=== PATIENT | male | born 1935 | race Two or more races ===

== ENCOUNTER 2017-02-24 14:57 | Inpatient (IN) | payer MEDICARE, OTHER ==
[~2017-02-24] VITALS: Ht 152.4 cm; Wt 97.5 kg
[2017-02-24] VITALS (21 sets, daily range): BP systolic 110–179; BP diastolic 41–102
[~2017-02-24 14:57] MED LIST: CALCIUM CHLOR(10%) 100MG/ML 10ML SYRINGE IV ONE; EPINEPHrine HCL 1 MG/10 ML SYRG IV ONE; SODIUM BICARBONATE 8.4% INJ 50ML SYRINGE IV ONE
[2017-02-24] MEDS ORDERED: SODIUM BICARBONATE 8.4% INJ 50ML SYRINGE ONE (14:58)
[2017-02-24] MEDS ORDERED: MIDAZOLAM DRIP 100 mg/100mL NS 100 ML IV SCH (15:11)
[2017-02-24] MEDS ORDERED: PIPERACILLIN-TAZOB 3.375GM 100 ML IV ONE (15:30)
[2017-02-24] MEDS ORDERED: SODIUM CHLORIDE 0.9% 1,000 ML IV ONE (15:30)
[2017-02-24] MEDS ORDERED: CLINDAMYCIN 900MG IV 50 ML IV ONE (15:30)
[2017-02-24 15:33] LABS: Basophils # (auto) 0.1 uL; Basophils % (auto) 0.4 % (0.0-2.0); Eosinophils # (auto) 0.2 uL; Hematocrit 40.4 % (41.0-53.0); Hemoglobin 12.8 g/dL (13.5-17.5); Lymphocytes # (auto) 3.4 uL; Lymphocytes % (auto) 18.8 % (10.0-50.0); Mean Corpuscular Hgb Conc. 31.7 g/dL (32.0-36.0); Mean Corpuscular Volume 97.8 fL (80.0-100.0); Mean Platelet Volume 9.7 fL (7.4-10.4); Monocytes % (auto) 5.4 % (0.0-12.0); Neutrophils # (auto) 13.3 uL; Neutrophils % (auto) 74.4 % (37.0-80.0); Platelet Count (auto) 177 10^3/uL (140-450); Red Cell Distribution Width 17.4 % (11.6-16.0); White Blood Cell 17.9 10^3/uL (4.4-10.8)
[2017-02-24 15:49] LABS: Albumin 2.7 g/dL (3.4-5.0); BUN/Creatinine Ratio 16.7; Bilirubin, Total 0.4 mg/dL (0.2-1.0); Calcium 7.7 mg/dL (8.5-10.1); Potassium 5.5 mmol/L (3.5-5.1); Total Protein 6.9 g/dL (6.4-8.2)
[2017-02-24 15:51] LABS: Allen Test Modified; Base Excess -8.3 mmol/L (-2.0-2.0); Blood 02Sat 97.2 % (96-100); Blood COHb 0.3 % (0.5-1.5); Blood MetHb 0.2 % (0.0-1.5); HCO3 18.7 mmol/L (22-26.0); HHb 2.8 % (0.0-5.0); MODE VENT - A/C; O2Hb 96.7 % (94.0-97.0); PO2 132.7 mmHg (80.0-100.0); PO2(T) 135.8 mmHg (80.0-100.0); Sample Type Arterial; pH 7.246 (7.350-7.450)
[2017-02-24 15:53] LABS: Urine Bilirubin Negative (Negative); Urine Blood TRACE /uL (Negative); Urine Color Yellow (Yellow); Urine Ketone Negative (Negative); Urine Nitrite Negative (Negative); Urine RBC 11 /hpf (0 - 3); Urine Urobilinogen Normal (Negative); Urine pH 5.5 (5.0-8.0)
[2017-02-24] MEDS: MIDAZOLAM DRIP 100 mg/100mL NS 100 ML IV SCH ×2 (16:00→22:35)
[2017-02-24 16:02] LABS: B-Type Natriuretic Peptide 1327.58 pg/mL (0-100); Lactic Acid w/Reflex 11.3 mmol/L (0.4-2.0)
[2017-02-24 16:03] LABS: Urine Glucose 2+ mg/dL (Normal)
[2017-02-24 16:06] LABS: Temperature: 23.1 C (20.0-25.0)
[2017-02-24] MEDS ORDERED: NITROGLYCERIN 0.4 MG SL TAB SL PRN (16:15)
[2017-02-24] MEDS ORDERED: MORPHINE SULF INJ 2 MG/ML SYRINGE 1ML IV PRN (16:15)
[2017-02-24] MEDS ORDERED: DEXTROSE (50%) 50ML SYRG IV PRN (16:15)
[2017-02-24 16:22] LABS: REFLEX LACTIC ACID YES OR NO YES
[2017-02-24] MEDS: PANTOPRAZOLE SODIUM 40 MG/10 ML VIAL IV SCH (16:30)
[2017-02-24] MEDS: ENOXAPARIN SOD 30 MG/0.3 ML SYRINGE SC SCH (16:30)
[2017-02-24] MEDS ORDERED: ASPirin 81 mg TAB PO ONE (16:30)
[2017-02-24] MEDS ORDERED: FUROSEMIDE 20 MG/2 ML VIAL IV ONE (16:30)
[2017-02-24] MEDS: cefTRIAXone 1GM/50ML D5W 50 ML IV SCH (17:41)
[2017-02-24] MEDS: ACCU-CHEK COMFORT CURVE STRIP VI SCH ×2 (18:00→23:58)
[2017-02-24] MEDS: InsuLIN REG 1unit/0.01ml Soln (100units/ml) SC SCH ×2 (18:00→23:58)
[2017-02-24] MEDS ORDERED: VANCOMYCIN 1GM/250ML D5W 250 ML IV ONE (18:15)
[2017-02-24] MEDS: PROPOFOL 100 ML IV SCH (19:40)
[2017-02-24] MEDS: CLINDAMYCIN 600MG IV 50 ML IV SCH (22:29)
[2017-02-24] MEDS: ALBUMIN 25% 100 ML IV SCH (22:29)
[2017-02-24] MEDS: ATORVASTATIN 20 MG TAB PO SCH (22:30)
[2017-02-24] MEDS: BUMETANIDE (0.25 MG/ML) INJ 10ML IV SCH (23:25)
[2017-02-25] VITALS (102 sets, daily range): BP systolic 92–177; BP diastolic 34–86
[2017-02-25 04:19] LABS: Basophils # (auto) 0 uL; Eosinophils # (auto) 0 uL; Hematocrit 29.7 % (41.0-53.0); Hemoglobin 9.7 g/dL (13.5-17.5); Lymphocytes # (auto) 0.7 uL; Lymphocytes % (auto) 4.4 % (10.0-50.0); Mean Corpuscular Hemoglobin 30.4 pg (28.0-32.0); Mean Corpuscular Hgb Conc. 32.5 g/dL (32.0-36.0); Mean Corpuscular Volume 93.5 fL (80.0-100.0); Mean Platelet Volume 9.2 fL (7.4-10.4); Monocytes # (auto) 1.1 uL; Monocytes % (auto) 6.9 % (0.0-12.0); Neutrophils # (auto) 14.2 uL; Neutrophils % (auto) 88.7 % (37.0-80.0); Platelet Count (auto) 152 10^3/uL (140-450); Red Cell Distribution Width 16.1 % (11.6-16.0)
[2017-02-25 04:43] LABS: Potassium 4.3 mmol/L (3.5-5.1)
[2017-02-25 04:47] LABS: Albumin 2.7 g/dL (3.4-5.0); Calcium 8.3 mg/dL (8.5-10.1)
[2017-02-25 05:06] LABS: Bilirubin, Total 0.5 mg/dL (0.2-1.0); Total Protein 5.9 g/dL (6.4-8.2)
[2017-02-25] MEDS: ALBUMIN 25% 100 ML IV SCH ×4 (05:33→23:51)
[2017-02-25] MEDS: InsuLIN REG 1unit/0.01ml Soln (100units/ml) SC SCH ×4 (06:00→23:48)
[2017-02-25] MEDS: ACCU-CHEK COMFORT CURVE STRIP VI SCH ×4 (06:20→23:48)
[2017-02-25] MEDS: CLINDAMYCIN 600MG IV 50 ML IV SCH ×3 (06:20→22:12)
[2017-02-25] MEDS: BUMETANIDE (0.25 MG/ML) INJ 10ML IV SCH ×3 (06:54→17:33)
[2017-02-25] MEDS ORDERED: REPA2TAB8 PO (09:26)
[2017-02-25] MEDS ORDERED: FERR-7 PO (09:26)
[2017-02-25] MEDS ORDERED: ASPI81CH43 PO (09:26)
[2017-02-25] MEDS ORDERED: CITA-77 PO (09:26)
[2017-02-25] MEDS ORDERED: FURO40TA4 PO (09:26)
[2017-02-25] MEDS ORDERED: B-CO-5 PO (09:26)
[2017-02-25] MEDS ORDERED: LOSA100T27 PO (09:26)
[2017-02-25] MEDS ORDERED: SIMV-8 PO (09:26)
[2017-02-25] MEDS: ASPirin 81 mg TAB PO SCH (09:36)
[2017-02-25] MEDS: ENOXAPARIN SOD 30 MG/0.3 ML SYRINGE SC SCH (09:36)
[2017-02-25] MEDS: cefTRIAXone 1GM/50ML D5W 50 ML IV SCH (09:36)
[2017-02-25] MEDS: PANTOPRAZOLE SODIUM 40 MG/10 ML VIAL IV SCH (09:36)
[2017-02-25 10:26] LABS: Allen Test Yes; Blood 02Sat 95.7 % (96-100); Blood COHb 0.3 % (0.5-1.5); Blood MetHb 0.3 % (0.0-1.5); HCO3 25.1 mmol/L (22-26.0); HHb 4.3 % (0.0-5.0); MODE VENT - A/C; O2Hb 95.1 % (94.0-97.0); PCO2 33.4 mmHg (35.0-45.0); PCO2(T) 33.4 mmHg (35.0-45.0); PO2 85.9 mmHg (80.0-100.0); PO2(T) 85.9 mmHg (80.0-100.0); Sample Type Arterial; pH 7.494 (7.350-7.450)
[2017-02-25] MEDS: MIDAZOLAM DRIP 100 mg/100mL NS 100 ML IV SCH (12:14)
[2017-02-25] MEDS ORDERED: BACLOFEN 10 MG TAB PO ONE (15:00)
[2017-02-25] MEDS ORDERED: Diabetisource AC 1 Liter GT SCH (15:00)
[2017-02-25] MEDS: PROPOFOL 100 ML IV SCH (15:12)
[2017-02-25] MEDS: FREE WATER GT SCH ×2 (17:34→23:51)
[2017-02-25] MEDS ORDERED: FREE WATER GT SCH (18:00)
[2017-02-25] MEDS: ATORVASTATIN 20 MG TAB PO SCH (22:12)
[2017-02-26] VITALS (97 sets, daily range): BP systolic 86–146; BP diastolic 34–67
[2017-02-26] MEDS: BUMETANIDE (0.25 MG/ML) INJ 10ML IV SCH ×4 (01:20→18:00)
[2017-02-26 04:08] LABS: Basophils # (auto) 0 uL; Basophils % (auto) 0.2 % (0.0-2.0); CONDITION Y; Eosinophils # (auto) 0 uL; Eosinophils % (auto) 0.1 % (0.0-7.0); Hematocrit 28.1 % (41.0-53.0); Hemoglobin 9.4 g/dL (13.5-17.5); Lymphocytes # (auto) 0.6 uL; Lymphocytes % (auto) 3.7 % (10.0-50.0); Mean Corpuscular Hemoglobin 31.1 pg (28.0-32.0); Mean Corpuscular Hgb Conc. 33.5 g/dL (32.0-36.0); Mean Platelet Volume 9.4 fL (7.4-10.4); Monocytes # (auto) 1.3 uL; Monocytes % (auto) 8.2 % (0.0-12.0); Neutrophils # (auto) 13.7 uL; Neutrophils % (auto) 87.8 % (37.0-80.0); Platelet Count (auto) 120 10^3/uL (140-450); White Blood Cell 15.6 10^3/uL (4.4-10.8)
[2017-02-26 04:31] LABS: BUN/Creatinine Ratio 15.8; Calcium 8.4 mg/dL (8.5-10.1); Potassium 3.6 mmol/L (3.5-5.1)
[2017-02-26] MEDS: CLINDAMYCIN 600MG IV 50 ML IV SCH ×3 (05:40→22:08)
[2017-02-26] MEDS: InsuLIN REG 1unit/0.01ml Soln (100units/ml) SC SCH ×3 (05:40→18:00)
[2017-02-26] MEDS: FREE WATER GT SCH ×3 (05:40→18:00)
[2017-02-26] MEDS: ALBUMIN 25% 100 ML IV SCH ×3 (05:40→18:00)
[2017-02-26] MEDS: ACCU-CHEK COMFORT CURVE STRIP VI SCH ×3 (05:40→18:00)
[2017-02-26 07:52] LABS: Allen Test No; Base Excess 1.4 mmol/L (-2.0-2.0); Blood 02Sat 92.3 % (96-100); Blood COHb 1.3 % (0.5-1.5); Blood MetHb 0.3 % (0.0-1.5); HCO3 23.7 mmol/L (22-26.0); HHb 7.6 % (0.0-5.0); MODE VENT - A/C; O2Hb 90.8 % (94.0-97.0); PCO2 31.4 mmHg (35.0-45.0); PCO2(T) 35.2 mmHg (35.0-45.0); PIP 23; PO2 65.6 mmHg (80.0-100.0); PO2(T) 78.4 mmHg (80.0-100.0); Sample Type Arterial; pH 7.495 (7.350-7.450)
[2017-02-26] MEDS: ACETAMINOPHEN 325 MG TAB PO PRN (08:34)
[2017-02-26] MEDS: PANTOPRAZOLE SODIUM 40 MG/10 ML VIAL IV SCH (09:27)
[2017-02-26] MEDS: cefTRIAXone 1GM/50ML D5W 50 ML IV SCH (09:27)
[2017-02-26] MEDS ORDERED: DOBUTamine 1000MCG/ML 250 ML IV SCH (09:30)
[2017-02-26] MEDS: ALBUTEROL SULF 2.5 MG/0.5ML(0.5%) NEB SOLN NEB PRN ×2 (12:16→22:19)
[2017-02-26] MEDS: ACETYLCYSTEINE 10 %(100MG/ML) SOL 4ML NEB SCH ×2 (12:17→22:19)
[2017-02-26] MEDS: ENOXAPARIN SOD 30 MG/0.3 ML SYRINGE SC SCH (12:25)
[2017-02-26] MEDS: ASPirin 81 mg TAB PO SCH (12:25)
[2017-02-26 15:54] LABS: Cholesterol 51 mg/dL (< 200); HDL Cholesterol 30 mg/dL (40-59); LDL Cholesterol 22 mg/dL (< 100); Triglycerides 78 mg/dL (< 150)
[2017-02-26] MEDS: MIDAZOLAM DRIP 100 mg/100mL NS 100 ML IV SCH (16:19)
[2017-02-26] MEDS: PROPOFOL 100 ML IV SCH (16:19)
[2017-02-26] MEDS: NOREPINEPHRINE BITARTRATE 250 ML IV SCH (16:55)
[2017-02-26] MEDS ORDERED: NOREPINEPHRINE BITARTRATE 250 ML IV ONE (16:55)
[2017-02-26] MEDS: fentaNYL Drip 2500mCg/250mlNS 250 ML IV SCH (18:50)
[2017-02-26] MEDS: ATORVASTATIN 20 MG TAB PO SCH (22:09)
[2017-02-26] MEDS: PIPERACILLIN-TAZOB 2.25GM 50 ML IV SCH (22:09)
[2017-02-27] VITALS (102 sets, daily range): BP systolic 85–133; BP diastolic 39–64
[2017-02-27] MEDS: FREE WATER GT SCH ×4 (00:10→18:15)
[2017-02-27] MEDS: InsuLIN REG 1unit/0.01ml Soln (100units/ml) SC SCH ×4 (00:16→18:16)
[2017-02-27] MEDS: ALBUMIN 25% 100 ML IV SCH ×4 (00:16→18:16)
[2017-02-27] MEDS: ACCU-CHEK COMFORT CURVE STRIP VI SCH ×4 (00:24→18:16)
[2017-02-27] MEDS: ACETAMINOPHEN 325 MG TAB PO PRN (01:30)
[2017-02-27 04:17] LABS: Basophils # (auto) 0 uL; Basophils % (auto) 0.1 % (0.0-2.0); CONDITION AutoValidated; Eosinophils # (auto) 0 uL; Hematocrit 25.5 % (41.0-53.0); Hemoglobin 8.8 g/dL (13.5-17.5); Lymphocytes # (auto) 0.6 uL; Lymphocytes % (auto) 4.7 % (10.0-50.0); Mean Corpuscular Hemoglobin 32.3 pg (28.0-32.0); Mean Corpuscular Hgb Conc. 34.6 g/dL (32.0-36.0); Mean Corpuscular Volume 93.4 fL (80.0-100.0); Mean Platelet Volume 9.3 fL (7.4-10.4); Monocytes # (auto) 0.8 uL; Monocytes % (auto) 6.7 % (0.0-12.0); Neutrophils # (auto) 10.6 uL; Neutrophils % (auto) 88.5 % (37.0-80.0); Platelet Count (auto) 90 10^3/uL (140-450)
[2017-02-27 04:27] LABS: BUN/Creatinine Ratio 16.6; Potassium 3.6 mmol/L (3.5-5.1)
[2017-02-27] MEDS: CLINDAMYCIN 600MG IV 50 ML IV SCH ×3 (05:37→22:19)
[2017-02-27] MEDS: BUMETANIDE (0.25 MG/ML) INJ 10ML IV SCH ×4 (06:00→18:15)
[2017-02-27] MEDS: ALBUTEROL SULF 2.5 MG/0.5ML(0.5%) NEB SOLN NEB PRN ×3 (06:16→22:22)
[2017-02-27] MEDS: ACETYLCYSTEINE 10 %(100MG/ML) SOL 4ML NEB SCH ×3 (06:16→22:22)
[2017-02-27] MEDS: PIPERACILLIN-TAZOB 2.25GM 50 ML IV SCH (06:44)
[2017-02-27 08:12] LABS: Allen Test Modified; Base Excess -3.3 mmol/L (-2.0-2.0); Blood 02Sat 93.2 % (96-100); Blood COHb 0.6 % (0.5-1.5); Blood MetHb 0.3 % (0.0-1.5); HHb 6.7 % (0.0-5.0); MODE VENT - A/C; O2Hb 92.4 % (94.0-97.0); PCO2 29.3 mmHg (35.0-45.0); PCO2(T) 29.9 mmHg (35.0-45.0); PO2 75.2 mmHg (80.0-100.0); PO2(T) 77.8 mmHg (80.0-100.0); Sample Type Arterial; pH 7.451 (7.350-7.450)
[2017-02-27] MEDS: ASPirin 81 mg TAB PO SCH (09:53)
[2017-02-27] MEDS: ENOXAPARIN SOD 30 MG/0.3 ML SYRINGE SC SCH (09:53)
[2017-02-27] MEDS: PANTOPRAZOLE SODIUM 40 MG/10 ML VIAL IV SCH (09:53)
[2017-02-27] MEDS ORDERED: LEVOFLOXACIN 250MG 50 ML IV SCH (16:14)
[2017-02-27] MEDS: NOREPINEPHRINE BITARTRATE 250 ML IV SCH (16:45)
[2017-02-27] MEDS: PROPOFOL 100 ML IV SCH (17:09)
[2017-02-27] MEDS: fentaNYL Drip 2500mCg/250mlNS 250 ML IV SCH (18:50)
[2017-02-27] MEDS: DOBUTamine 1000MCG/ML 250 ML IV SCH (20:05)
[2017-02-27] MEDS: ATORVASTATIN 20 MG TAB PO SCH (22:20)
[2017-02-28] VITALS (109 sets, daily range): BP systolic 101–143; BP diastolic 49–67
[2017-02-28] MEDS: ALBUMIN 25% 100 ML IV SCH ×5 (00:49→23:40)
[2017-02-28] MEDS: BUMETANIDE (0.25 MG/ML) INJ 10ML IV SCH ×4 (00:50→17:56)
[2017-02-28] MEDS: DOBUTamine 1000MCG/ML 250 ML IV SCH ×2 (02:12→15:00)
[2017-02-28 04:28] LABS: Basophils # (auto) 0 uL; Basophils % (auto) 0.1 % (0.0-2.0); CONDITION AutoValidated; DEFINITIVE SEE PRINTOUT; Eosinophils # (auto) 0.2 uL; Eosinophils % (auto) 2.1 % (0.0-7.0); Hematocrit 23.9 % (41.0-53.0); Hemoglobin 7.9 g/dL (13.5-17.5); Lymphocytes # (auto) 0.3 uL; Lymphocytes % (auto) 3.4 % (10.0-50.0); Mean Corpuscular Hemoglobin 30.4 pg (28.0-32.0); Mean Corpuscular Hgb Conc. 32.8 g/dL (32.0-36.0); Mean Corpuscular Volume 92.7 fL (80.0-100.0); Mean Platelet Volume 9.9 fL (7.4-10.4); Monocytes # (auto) 0.6 uL; Monocytes % (auto) 6.3 % (0.0-12.0); Neutrophils # (auto) 7.7 uL; Neutrophils % (auto) 88.1 % (37.0-80.0); Platelet Count (auto) 80 10^3/uL (140-450); Red Cell Distribution Width 17.3 % (11.6-16.0); White Blood Cell 8.8 10^3/uL (4.4-10.8)
[2017-02-28 04:47] LABS: Albumin 4.1 g/dL (3.4-5.0); BUN/Creatinine Ratio 16.4; Calcium 7.6 mg/dL (8.5-10.1); Magnesium 2.5 mg/dL (1.6-2.6); Potassium 3.4 mmol/L (3.5-5.1)
[2017-02-28 04:50] LABS: Total Protein 6.7 g/dL (6.4-8.2)
[2017-02-28] MEDS ORDERED: SODIUM CHL 0.9% 1000 ML BAG XX ONE (06:00)
[2017-02-28] MEDS: FREE WATER GT SCH ×4 (06:20→18:23)
[2017-02-28] MEDS: CLINDAMYCIN 600MG IV 50 ML IV SCH ×3 (06:20→22:13)
[2017-02-28] MEDS: InsuLIN REG 1unit/0.01ml Soln (100units/ml) SC SCH ×4 (06:21→18:00)
[2017-02-28] MEDS: ACCU-CHEK COMFORT CURVE STRIP VI SCH ×4 (06:21→18:23)
[2017-02-28 06:27] LABS: Base Excess 0.9 mmol/L (-2.0-2.0); Blood 02Sat 95.2 % (96-100); Blood COHb 0.5 % (0.5-1.5); Blood MetHb 0.3 % (0.0-1.5); HCO3 24.7 mmol/L (22-26.0); HHb 4.8 % (0.0-5.0); MODE VENT - A/C; O2Hb 94.4 % (94.0-97.0); PO2 85.7 mmHg (80.0-100.0); PO2(T) 85.7 mmHg (80.0-100.0); Sample Type Arterial; pH 7.454 (7.350-7.450)
[2017-02-28] MEDS: ALBUTEROL SULF 2.5 MG/0.5ML(0.5%) NEB SOLN NEB PRN ×2 (07:01→22:10)
[2017-02-28] MEDS: ACETYLCYSTEINE 10 %(100MG/ML) SOL 4ML NEB SCH ×3 (07:01→22:10)
[2017-02-28] MEDS ORDERED: HEPARIN SODIUM (PORCINE) 5000 UNITS/ML 1ML VIAL ONE (08:58)
[2017-02-28] MEDS: PANTOPRAZOLE SODIUM 40 MG/10 ML VIAL IV SCH (10:30)
[2017-02-28] MEDS: ASPirin 81 mg TAB PO SCH (10:30)
[2017-02-28] MEDS: ENOXAPARIN SOD 30 MG/0.3 ML SYRINGE SC SCH (10:30)
[2017-02-28] MEDS: DEXMEDETOMIDINE HCL 400 MCG in SODIUM CHL 0.9% 96 ML IV SCH ×2 (11:37→14:08)
[2017-02-28] MEDS: NOREPINEPHRINE BITARTRATE 250 ML IV SCH (16:45)
[2017-02-28] MEDS: LEVOFLOXACIN 250MG 50 ML IV SCH (16:55)
[2017-02-28] MEDS: PROPOFOL 100 ML IV SCH (17:10)
[2017-02-28] MEDS: fentaNYL Drip 2500mCg/250mlNS 250 ML IV SCH (18:26)
[2017-03-01] VITALS (97 sets, daily range): BP systolic 104–149; BP diastolic 41–70
[2017-03-01 04:49] LABS: Basophils # (auto) 0 uL; Basophils % (auto) 0.1 % (0.0-2.0); CONDITION AutoValidated; DEFINITIVE SEE PRINTOUT; Eosinophils # (auto) 0.1 uL; Eosinophils % (auto) 1.3 % (0.0-7.0); Hematocrit 26.6 % (41.0-53.0); Hemoglobin 8.8 g/dL (13.5-17.5); Lymphocytes # (auto) 0.3 uL; Lymphocytes % (auto) 4.1 % (10.0-50.0); Mean Corpuscular Hemoglobin 30.7 pg (28.0-32.0); Mean Corpuscular Hgb Conc. 33.3 g/dL (32.0-36.0); Mean Corpuscular Volume 92.4 fL (80.0-100.0); Mean Platelet Volume 10.6 fL (7.4-10.4); Monocytes # (auto) 0.6 uL; Monocytes % (auto) 7.8 % (0.0-12.0); Neutrophils # (auto) 6.8 uL; Neutrophils % (auto) 86.7 % (37.0-80.0); Platelet Count (auto) 61 10^3/uL (140-450); Red Cell Distribution Width 16.4 % (11.6-16.0); White Blood Cell 7.8 10^3/uL (4.4-10.8)
[2017-03-01 05:02] LABS: Potassium 3.6 mmol/L (3.5-5.1)
[2017-03-01 05:07] LABS: Albumin 4.3 g/dL (3.4-5.0); BUN/Creatinine Ratio 13.9; Calcium 7.5 mg/dL (8.5-10.1); Magnesium 2.4 mg/dL (1.6-2.6)
[2017-03-01 05:09] LABS: Bilirubin, Total 1.4 mg/dL (0.2-1.0); Phosphorus 3.2 mg/dL (2.5-4.90); Total Protein 6.8 g/dL (6.4-8.2)
[2017-03-01] MEDS: FREE WATER GT SCH ×5 (06:16→23:20)
[2017-03-01] MEDS: CLINDAMYCIN 600MG IV 50 ML IV SCH ×3 (06:17→23:19)
[2017-03-01] MEDS: InsuLIN REG 1unit/0.01ml Soln (100units/ml) SC SCH ×5 (06:19→23:43)
[2017-03-01] MEDS: ALBUMIN 25% 100 ML IV SCH ×2 (06:19→17:47)
[2017-03-01] MEDS: ACCU-CHEK COMFORT CURVE STRIP VI SCH ×5 (06:19→23:46)
[2017-03-01] MEDS: BUMETANIDE (0.25 MG/ML) INJ 10ML IV SCH ×3 (06:25→17:34)
[2017-03-01 06:33] LABS: Base Excess 5.7 mmol/L (-2.0-2.0); Blood 02Sat 92.9 % (96-100); Blood COHb 0.5 % (0.5-1.5); Blood MetHb 0.3 % (0.0-1.5); MODE VENT - A/C; O2Hb 92.2 % (94.0-97.0); PCO2 37.4 mmHg (35.0-45.0); PCO2(T) 37.4 mmHg (35.0-45.0); PO2 67.2 mmHg (80.0-100.0); PO2(T) 67.2 mmHg (80.0-100.0); Sample Type Arterial; pH 7.508 (7.350-7.450)
[2017-03-01] MEDS: ALBUTEROL SULF 2.5 MG/0.5ML(0.5%) NEB SOLN NEB PRN ×3 (07:35→22:11)
[2017-03-01] MEDS: ACETYLCYSTEINE 10 %(100MG/ML) SOL 4ML NEB SCH ×3 (07:35→22:13)
[2017-03-01] MEDS: DEXMEDETOMIDINE HCL 400 MCG in SODIUM CHL 0.9% 96 ML IV SCH (07:59)
[2017-03-01] MEDS: DOBUTamine 1000MCG/ML 250 ML IV SCH ×2 (08:04→23:43)
[2017-03-01] MEDS: ACETAMINOPHEN 325 MG TAB PO PRN (08:04)
[2017-03-01] MEDS: PANTOPRAZOLE SODIUM 40 MG/10 ML VIAL IV SCH (10:05)
[2017-03-01] MEDS: ASPirin 81 mg TAB PO SCH (10:05)
[2017-03-01] MEDS: ENOXAPARIN SOD 30 MG/0.3 ML SYRINGE SC SCH (10:05)
[2017-03-01] MEDS: PROPOFOL 100 ML IV SCH (16:19)
[2017-03-01] MEDS: NOREPINEPHRINE BITARTRATE 250 ML IV SCH (16:45)
[2017-03-01] MEDS: fentaNYL Drip 2500mCg/250mlNS 250 ML IV SCH (18:50)
[2017-03-02] VITALS (105 sets, daily range): BP systolic 113–159; BP diastolic 43–77
[2017-03-02] MEDS: DEXMEDETOMIDINE HCL 400 MCG in SODIUM CHL 0.9% 96 ML IV SCH ×2 (03:16→22:33)
[2017-03-02] MEDS: ACCU-CHEK COMFORT CURVE STRIP VI SCH ×3 (06:00→18:12)
[2017-03-02] MEDS: FREE WATER GT SCH ×3 (06:00→18:10)
[2017-03-02] MEDS: BUMETANIDE (0.25 MG/ML) INJ 10ML IV SCH ×2 (06:03→18:10)
[2017-03-02] MEDS: InsuLIN REG 1unit/0.01ml Soln (100units/ml) SC SCH ×3 (06:04→18:11)
[2017-03-02] MEDS: CLINDAMYCIN 600MG IV 50 ML IV SCH ×3 (06:05→21:40)
[2017-03-02] MEDS: ALBUMIN 25% 100 ML IV SCH ×2 (06:05→18:12)
[2017-03-02] MEDS: ALBUTEROL SULF 2.5 MG/0.5ML(0.5%) NEB SOLN NEB PRN ×3 (06:18→22:29)
[2017-03-02] MEDS: ACETYLCYSTEINE 10 %(100MG/ML) SOL 4ML NEB SCH ×3 (06:20→22:29)
[2017-03-02 06:24] LABS: Basophils # (auto) 0 uL; Basophils % (auto) 0.3 % (0.0-2.0); CONDITION AutoValidated; Eosinophils # (auto) 0.1 uL; Hematocrit 29.2 % (41.0-53.0); Hemoglobin 9.7 g/dL (13.5-17.5); Lymphocytes # (auto) 0.4 uL; Lymphocytes % (auto) 4.3 % (10.0-50.0); Mean Corpuscular Hemoglobin 30.5 pg (28.0-32.0); Mean Corpuscular Hgb Conc. 33.2 g/dL (32.0-36.0); Mean Corpuscular Volume 91.9 fL (80.0-100.0); Mean Platelet Volume 11.5 fL (7.4-10.4); Monocytes # (auto) 0.8 uL; Monocytes % (auto) 7.8 % (0.0-12.0); Neutrophils # (auto) 8.9 uL; Neutrophils % (auto) 86.6 % (37.0-80.0); Platelet Count (auto) 84 10^3/uL (140-450); Red Cell Distribution Width 16.8 % (11.6-16.0); White Blood Cell 10.2 10^3/uL (4.4-10.8)
[2017-03-02 06:51] LABS: Albumin 3.9 g/dL (3.4-5.0); Bilirubin, Total 1.1 mg/dL (0.2-1.0); Calcium 7.7 mg/dL (8.5-10.1); Potassium 3.9 mmol/L (3.5-5.1); Total Protein 6.4 g/dL (6.4-8.2)
[2017-03-02 07:31] LABS: Allen Test Yes; Base Excess 4.8 mmol/L (-2.0-2.0); Blood 02Sat 94.7 % (96-100); Blood COHb 0.4 % (0.5-1.5); Blood MetHb 0.1 % (0.0-1.5); HCO3 28.5 mmol/L (22-26.0); HHb 5.3 % (0.0-5.0); IE RATIO 1.3.3; MODE VENT - A/C; O2Hb 94.2 % (94.0-97.0); PCO2 38.7 mmHg (35.0-45.0); PCO2(T) 38.7 mmHg (35.0-45.0); PIP 29; PO2 79.4 mmHg (80.0-100.0); PO2(T) 79.4 mmHg (80.0-100.0); Sample Type Arterial; Spont Vt 528; pH 7.485 (7.350-7.450)
[2017-03-02] MEDS ORDERED: SODIUM CHL 0.9% 1000 ML BAG XX ONE (08:30)
[2017-03-02] MEDS ORDERED: EPOETIN ALFA 10,000 UNIT/1 ML VIAL IV ONE (08:30)
[2017-03-02] MEDS: ASPirin 81 mg TAB PO SCH (10:00)
[2017-03-02] MEDS: PANTOPRAZOLE SODIUM 40 MG/10 ML VIAL IV SCH (10:00)
[2017-03-02] MEDS: ENOXAPARIN SOD 30 MG/0.3 ML SYRINGE SC SCH (10:00)
[2017-03-02] MEDS ORDERED: HEPARIN 1,000 UNITS/ml 1ML VIAL ONE (13:34)
[2017-03-02] MEDS: LEVOFLOXACIN 250MG 50 ML IV SCH (16:16)
[2017-03-02] MEDS: PROPOFOL 100 ML IV SCH (16:19)
[2017-03-02] MEDS: NOREPINEPHRINE BITARTRATE 250 ML IV SCH (16:45)
[2017-03-02] MEDS: DOBUTamine 1000MCG/ML 250 ML IV SCH (16:47)
[2017-03-02] MEDS ORDERED: DEXTROSE (50%) 50ML SYRG IV PRN (17:00)
[2017-03-02] MEDS ORDERED: Novasource Renal 1 Liter GT SCH (17:00)
[2017-03-02] MEDS: fentaNYL Drip 2500mCg/250mlNS 250 ML IV SCH (18:12)
[2017-03-03] VITALS (107 sets, daily range): BP systolic 126–158; BP diastolic 42–70
[2017-03-03 03:58] LABS: Basophils # (auto) 0 uL; Basophils % (auto) 0.1 % (0.0-2.0); CONDITION Y; Eosinophils # (auto) 0.2 uL; Eosinophils % (auto) 1.4 % (0.0-7.0); Hematocrit 29.5 % (41.0-53.0); Hemoglobin 9.6 g/dL (13.5-17.5); Lymphocytes # (auto) 0.3 uL; Lymphocytes % (auto) 2.7 % (10.0-50.0); Mean Corpuscular Hemoglobin 30.3 pg (28.0-32.0); Mean Corpuscular Hgb Conc. 32.5 g/dL (32.0-36.0); Mean Corpuscular Volume 93.3 fL (80.0-100.0); Mean Platelet Volume 10.9 fL (7.4-10.4); Monocytes # (auto) 0.9 uL; Monocytes % (auto) 7.6 % (0.0-12.0); Neutrophils # (auto) 10.7 uL; Neutrophils % (auto) 88.2 % (37.0-80.0); Platelet Count (auto) 77 10^3/uL (140-450); Red Cell Distribution Width 16.5 % (11.6-16.0); White Blood Cell 12.1 10^3/uL (4.4-10.8)
[2017-03-03 04:26] LABS: Albumin 3.9 g/dL (3.4-5.0); BUN/Creatinine Ratio 14.3; Calcium 7.5 mg/dL (8.5-10.1); Potassium 3.6 mmol/L (3.5-5.1)
[2017-03-03 04:27] LABS: Total Protein 6.6 g/dL (6.4-8.2)
[2017-03-03] MEDS: ALBUMIN 25% 100 ML IV SCH ×2 (05:38→18:03)
[2017-03-03] MEDS: ACCU-CHEK COMFORT CURVE STRIP VI SCH ×4 (06:28→18:03)
[2017-03-03] MEDS: FREE WATER GT SCH ×4 (06:30→17:04)
[2017-03-03] MEDS: ACETYLCYSTEINE 10 %(100MG/ML) SOL 4ML NEB SCH ×3 (06:34→22:30)
[2017-03-03] MEDS: ALBUTEROL SULF 2.5 MG/0.5ML(0.5%) NEB SOLN NEB PRN ×3 (06:34→22:30)
[2017-03-03] MEDS: CLINDAMYCIN 600MG IV 50 ML IV SCH ×3 (06:40→21:47)
[2017-03-03] MEDS: InsuLIN REG 1unit/0.01ml Soln (100units/ml) SC SCH ×4 (06:41→18:03)
[2017-03-03] MEDS: BUMETANIDE (0.25 MG/ML) INJ 10ML IV SCH ×2 (06:41→19:22)
[2017-03-03 09:18] LABS: Base Excess 2.4 mmol/L (-2.0-2.0); Blood 02Sat 95.6 % (96-100); Blood COHb 0.7 % (0.5-1.5); HCO3 26.4 mmol/L (22-26.0); HHb 4.4 % (0.0-5.0); MODE VENT - A/C; O2Hb 94.9 % (94.0-97.0); PCO2 38.5 mmHg (35.0-45.0); PCO2(T) 38.5 mmHg (35.0-45.0); PO2 86.5 mmHg (80.0-100.0); PO2(T) 86.5 mmHg (80.0-100.0); Sample Type Arterial; pH 7.454 (7.350-7.450)
[2017-03-03] MEDS: PANTOPRAZOLE SODIUM 40 MG/10 ML VIAL IV SCH (10:00)
[2017-03-03] MEDS: ENOXAPARIN SOD 30 MG/0.3 ML SYRINGE SC SCH (10:00)
[2017-03-03] MEDS: ASPirin 81 mg TAB PO SCH (10:01)
[2017-03-03] MEDS: DOBUTamine 1000MCG/ML 250 ML IV SCH (14:03)
[2017-03-03] MEDS: NOREPINEPHRINE BITARTRATE 250 ML IV SCH (16:45)
[2017-03-03] MEDS: PROPOFOL 100 ML IV SCH (17:03)
[2017-03-03] MEDS: DEXMEDETOMIDINE HCL 400 MCG in SODIUM CHL 0.9% 96 ML IV SCH (17:05)
[2017-03-03] MEDS: fentaNYL Drip 2500mCg/250mlNS 250 ML IV SCH (19:00)
[2017-03-03] MEDS: ACETAMINOPHEN 325 MG TAB PO PRN (21:47)
[2017-03-04] VITALS (94 sets, daily range): BP systolic 115–161; BP diastolic 3–70
[2017-03-04] MEDS: InsuLIN REG 1unit/0.01ml Soln (100units/ml) SC SCH ×4 (00:30→18:27)
[2017-03-04 03:59] LABS: Basophils # (auto) 0 uL; CONDITION Y; Eosinophils # (auto) 0.4 uL; Eosinophils % (auto) 2.6 % (0.0-7.0); Hematocrit 28.7 % (41.0-53.0); Hemoglobin 9.4 g/dL (13.5-17.5); Lymphocytes # (auto) 0.6 uL; Lymphocytes % (auto) 4.4 % (10.0-50.0); Mean Corpuscular Hemoglobin 30.5 pg (28.0-32.0); Mean Corpuscular Hgb Conc. 32.8 g/dL (32.0-36.0); Mean Corpuscular Volume 93.1 fL (80.0-100.0); Mean Platelet Volume 10.7 fL (7.4-10.4); Monocytes # (auto) 1.1 uL; Monocytes % (auto) 7.8 % (0.0-12.0); Neutrophils # (auto) 12.3 uL; Neutrophils % (auto) 85.2 % (37.0-80.0); Platelet Count (auto) 94 10^3/uL (140-450); Red Cell Distribution Width 16.8 % (11.6-16.0); White Blood Cell 14.4 10^3/uL (4.4-10.8)
[2017-03-04 04:29] LABS: Albumin 3.9 g/dL (3.4-5.0); BUN/Creatinine Ratio 16.4; Calcium 7.8 mg/dL (8.5-10.1); Potassium 3.3 mmol/L (3.5-5.1)
[2017-03-04 04:32] LABS: Bilirubin, Total 0.8 mg/dL (0.2-1.0); Total Protein 6.3 g/dL (6.4-8.2)
[2017-03-04] MEDS: FREE WATER GT SCH ×4 (06:00→17:38)
[2017-03-04] MEDS: ALBUTEROL SULF 2.5 MG/0.5ML(0.5%) NEB SOLN NEB PRN ×3 (06:19→22:47)
[2017-03-04] MEDS: ACETYLCYSTEINE 10 %(100MG/ML) SOL 4ML NEB SCH ×3 (06:19→22:30)
[2017-03-04] MEDS: ACCU-CHEK COMFORT CURVE STRIP VI SCH ×4 (06:26→17:38)
[2017-03-04] MEDS: ALBUMIN 25% 100 ML IV SCH ×2 (06:27→18:30)
[2017-03-04] MEDS: BUMETANIDE (0.25 MG/ML) INJ 10ML IV SCH ×2 (06:50→19:30)
[2017-03-04] MEDS: CLINDAMYCIN 600MG IV 50 ML IV SCH ×3 (06:50→22:07)
[2017-03-04] MEDS: DOBUTamine 1000MCG/ML 250 ML IV SCH (07:30)
[2017-03-04 08:14] LABS: Allen Test Yes; Base Excess 5.5 mmol/L (-2.0-2.0); Blood 02Sat 95.6 % (96-100); Blood COHb 0.9 % (0.5-1.5); Blood MetHb 0.1 % (0.0-1.5); HCO3 29.4 mmol/L (22-26.0); HHb 4.4 % (0.0-5.0); MODE VENT - A/C; O2Hb 94.6 % (94.0-97.0); PO2 84.7 mmHg (80.0-100.0); PO2(T) 84.7 mmHg (80.0-100.0); Sample Type Arterial; pH 7.484 (7.350-7.450)
[2017-03-04] MEDS: PANTOPRAZOLE SODIUM 40 MG/10 ML VIAL IV SCH (09:58)
[2017-03-04] MEDS: ENOXAPARIN SOD 30 MG/0.3 ML SYRINGE SC SCH (09:58)
[2017-03-04] MEDS: ASPirin 81 mg TAB PO SCH (09:58)
[2017-03-04] MEDS: DEXMEDETOMIDINE HCL 400 MCG in SODIUM CHL 0.9% 96 ML IV SCH (15:24)
[2017-03-04] MEDS: LEVOFLOXACIN 250MG 50 ML IV SCH (17:30)
[2017-03-04] MEDS: NOREPINEPHRINE BITARTRATE 250 ML IV SCH (17:37)
[2017-03-04] MEDS: PROPOFOL 100 ML IV SCH (17:37)
[2017-03-04] MEDS: fentaNYL Drip 2500mCg/250mlNS 250 ML IV SCH (20:02)
[2017-03-05] VITALS (96 sets, daily range): BP systolic 115–164; BP diastolic 41–67
[2017-03-05] MEDS: FREE WATER GT SCH ×4 (00:30→18:00)
[2017-03-05] MEDS: ACCU-CHEK COMFORT CURVE STRIP VI SCH ×4 (00:40→18:10)
[2017-03-05] MEDS: DOBUTamine 1000MCG/ML 250 ML IV SCH ×2 (00:40→15:48)
[2017-03-05] MEDS: InsuLIN REG 1unit/0.01ml Soln (100units/ml) SC SCH ×4 (00:45→18:10)
[2017-03-05] MEDS: CLINDAMYCIN 600MG IV 50 ML IV SCH ×3 (05:26→22:02)
[2017-03-05] MEDS: ALBUMIN 25% 100 ML IV SCH (05:56)
[2017-03-05] MEDS: ALBUTEROL SULF 2.5 MG/0.5ML(0.5%) NEB SOLN NEB PRN ×2 (06:04→12:11)
[2017-03-05] MEDS: ACETYLCYSTEINE 10 %(100MG/ML) SOL 4ML NEB SCH ×2 (06:05→12:11)
[2017-03-05] MEDS: BUMETANIDE (0.25 MG/ML) INJ 10ML IV SCH ×2 (06:15→18:00)
[2017-03-05 07:42] LABS: Allen Test Modified; Base Excess 4.1 mmol/L (-2.0-2.0); Blood 02Sat 96.2 % (96-100); Blood COHb 0.4 % (0.5-1.5); Blood MetHb 0.1 % (0.0-1.5); HCO3 27.5 mmol/L (22-26.0); HHb 3.8 % (0.0-5.0); MODE VENT - A/C; O2Hb 95.7 % (94.0-97.0); PCO2 36.8 mmHg (35.0-45.0); PCO2(T) 36.8 mmHg (35.0-45.0); PO2 89.9 mmHg (80.0-100.0); PO2(T) 89.9 mmHg (80.0-100.0); Sample Type Arterial; pH 7.492 (7.350-7.450)
[2017-03-05] MEDS: DEXMEDETOMIDINE HCL 400 MCG in SODIUM CHL 0.9% 96 ML IV SCH (08:24)
[2017-03-05] MEDS: ASPirin 81 mg TAB PO SCH (10:28)
[2017-03-05] MEDS: ENOXAPARIN SOD 30 MG/0.3 ML SYRINGE SC SCH (10:28)
[2017-03-05] MEDS: PANTOPRAZOLE SODIUM 40 MG/10 ML VIAL IV SCH (10:28)
[2017-03-05] MEDS: PROPOFOL 100 ML IV SCH (16:19)
[2017-03-05] MEDS: NOREPINEPHRINE BITARTRATE 250 ML IV SCH (16:43)
[2017-03-05] MEDS: fentaNYL Drip 2500mCg/250mlNS 250 ML IV SCH (18:50)
[2017-03-06] VITALS (81 sets, daily range): BP systolic 119–166; BP diastolic 49–84
[2017-03-06] MEDS: ACCU-CHEK COMFORT CURVE STRIP VI SCH ×4 (00:20→17:26)
[2017-03-06] MEDS: ALBUTEROL SULF 2.5 MG/0.5ML(0.5%) NEB SOLN NEB PRN ×4 (00:23→22:11)
[2017-03-06] MEDS: ACETYLCYSTEINE 10 %(100MG/ML) SOL 4ML NEB SCH ×4 (00:24→22:11)
[2017-03-06] MEDS: InsuLIN REG 1unit/0.01ml Soln (100units/ml) SC SCH ×4 (00:25→17:33)
[2017-03-06] MEDS: FREE WATER GT SCH ×4 (00:25→17:33)
[2017-03-06] MEDS: DEXMEDETOMIDINE HCL 400 MCG in SODIUM CHL 0.9% 96 ML IV SCH ×2 (03:41→22:58)
[2017-03-06 03:51] LABS: Basophils # (auto) 0 uL; CONDITION Y; Eosinophils # (auto) 0.2 uL; Eosinophils % (auto) 1.9 % (0.0-7.0); Hematocrit 29.8 % (41.0-53.0); Lymphocytes # (auto) 0.6 uL; Lymphocytes % (auto) 4.8 % (10.0-50.0); Mean Corpuscular Hemoglobin 30.9 pg (28.0-32.0); Mean Corpuscular Hgb Conc. 33.4 g/dL (32.0-36.0); Mean Corpuscular Volume 92.4 fL (80.0-100.0); Mean Platelet Volume 10.1 fL (7.4-10.4); Monocytes # (auto) 0.8 uL; Monocytes % (auto) 6.4 % (0.0-12.0); Neutrophils # (auto) 11.4 uL; Neutrophils % (auto) 86.9 % (37.0-80.0); Platelet Count (auto) 145 10^3/uL (140-450); Red Cell Distribution Width 16.8 % (11.6-16.0); White Blood Cell 13.2 10^3/uL (4.4-10.8)
[2017-03-06 04:17] LABS: Calcium 8.5 mg/dL (8.5-10.1); Magnesium 2.6 mg/dL (1.6-2.6); Potassium 3.2 mmol/L (3.5-5.1)
[2017-03-06] MEDS: CLINDAMYCIN 600MG IV 50 ML IV SCH ×3 (06:17→22:00)
[2017-03-06] MEDS: BUMETANIDE (0.25 MG/ML) INJ 10ML IV SCH ×2 (06:17→17:26)
[2017-03-06 07:18] LABS: Allen Test Yes; Base Excess 3.8 mmol/L (-2.0-2.0); Blood 02Sat 94.9 % (96-100); Blood COHb 0.4 % (0.5-1.5); Blood MetHb 0.2 % (0.0-1.5); HCO3 26.8 mmol/L (22-26.0); HHb 5.1 % (0.0-5.0); MODE VENT - A/C; O2Hb 94.3 % (94.0-97.0); PCO2 34.6 mmHg (35.0-45.0); PCO2(T) 34.6 mmHg (35.0-45.0); PO2 79.2 mmHg (80.0-100.0); PO2(T) 79.2 mmHg (80.0-100.0); Sample Type Arterial; pH 7.507 (7.350-7.450)
[2017-03-06] MEDS: DOBUTamine 1000MCG/ML 250 ML IV SCH (10:29)
[2017-03-06] MEDS: ASPirin 81 mg TAB PO SCH (10:34)
[2017-03-06] MEDS: ENOXAPARIN SOD 30 MG/0.3 ML SYRINGE SC SCH (10:34)
[2017-03-06] MEDS: PANTOPRAZOLE SODIUM 40 MG/10 ML VIAL IV SCH (10:34)
[2017-03-06] MEDS: LEVOFLOXACIN 250MG 50 ML IV SCH (16:00)
[2017-03-06] MEDS: PROPOFOL 100 ML IV SCH (16:19)
[2017-03-06] MEDS: NOREPINEPHRINE BITARTRATE 250 ML IV SCH (16:45)
[2017-03-06] MEDS ORDERED: INSULIN DETEMIR(LEVEMIR) 1unit/0.01ml Soln (100units/ml) SC ONE (17:45)
[2017-03-06] MEDS: fentaNYL Drip 2500mCg/250mlNS 250 ML IV SCH (18:50)
[2017-03-07] VITALS (59 sets, daily range): BP systolic 100–154; BP diastolic 41–75
[2017-03-07] MEDS: ACCU-CHEK COMFORT CURVE STRIP VI SCH ×3 (00:05→12:02)
[2017-03-07] MEDS: InsuLIN REG 1unit/0.01ml Soln (100units/ml) SC SCH ×3 (00:06→12:03)
[2017-03-07] MEDS: FREE WATER GT SCH ×3 (00:06→12:02)
[2017-03-07] MEDS: DOBUTamine 1000MCG/ML 250 ML IV SCH (04:40)
[2017-03-07] MEDS: BUMETANIDE (0.25 MG/ML) INJ 10ML IV SCH (05:23)
[2017-03-07] MEDS: CLINDAMYCIN 600MG IV 50 ML IV SCH ×2 (05:26→14:00)
[2017-03-07] MEDS: ALBUTEROL SULF 2.5 MG/0.5ML(0.5%) NEB SOLN NEB PRN ×2 (06:33→12:40)
[2017-03-07] MEDS: ACETYLCYSTEINE 10 %(100MG/ML) SOL 4ML NEB SCH ×2 (06:33→12:40)
[2017-03-07 07:05] LABS: Base Excess 8.7 mmol/L (-2.0-2.0); Blood 02Sat 96.2 % (96-100); Blood COHb 0.7 % (0.5-1.5); Blood MetHb 0.3 % (0.0-1.5); HCO3 31.8 mmol/L (22-26.0); HHb 3.8 % (0.0-5.0); MODE VENT - A/C; O2Hb 95.2 % (94.0-97.0); PCO2 38.1 mmHg (35.0-45.0); PCO2(T) 38.1 mmHg (35.0-45.0); PO2 79.5 mmHg (80.0-100.0); PO2(T) 79.5 mmHg (80.0-100.0); Sample Type Arterial; pH 7.539 (7.350-7.450)
[2017-03-07] MEDS: ENOXAPARIN SOD 30 MG/0.3 ML SYRINGE SC SCH (10:00)
[2017-03-07] MEDS: PANTOPRAZOLE SODIUM 40 MG/10 ML VIAL IV SCH (10:23)
[2017-03-07] MEDS: ASPirin 81 mg TAB PO SCH (10:23)
[2017-03-07] MEDS ORDERED: MORPHINE SULF INJ 2 MG/ML SYRINGE 1ML IV PRN ×2 (16:45→19:15)
[2017-03-07] MEDS ORDERED: LORazepam 2MG/ML-1ML VIAL IV PRN ×2 (16:45→18:45)
[2017-03-07] MEDS: LORazepam 2MG/ML-1ML VIAL IV PRN ×2 (21:00→23:05)
[2017-03-07] MEDS ORDERED: MORPHINE SULF INJ 2 MG/ML SYRINGE 1ML ONE (22:03)
[2017-03-07] MEDS: MORPHINE SULF INJ 2 MG/ML SYRINGE 1ML IV PRN (22:10)
[2017-03-08] MEDS: MORPHINE SULF INJ 2 MG/ML SYRINGE 1ML IV PRN ×11 (00:26→22:40)
[2017-03-08] MEDS: DOBUTamine 1000MCG/ML 250 ML IV SCH (00:58)
[2017-03-08] MEDS: PROPOFOL 100 ML IV SCH (00:58)
[2017-03-08] MEDS: LORazepam 2MG/ML-1ML VIAL IV PRN ×11 (01:31→23:26)
[2017-03-08 05:01] VITALS: BP 104/50
[2017-03-08 10:00] VITALS: BP 115/45
[2017-03-08 12:19] VITALS: BP 105/44
[2017-03-08 17:48] VITALS: BP 90/39
[2017-03-08 21:44] VITALS: BP 113/47
[2017-03-09] MEDS: MORPHINE SULF INJ 2 MG/ML SYRINGE 1ML IV PRN (00:21)
[2017-03-09] MEDS: LORazepam 2MG/ML-1ML VIAL IV PRN (01:22)
== END 2017-03-09 01:29 | disposition expired | DRG 870 ==
LOC: ER 14:57 → EDBD 14:57 → TELE 14:58 → ICU WEST 19:02 → TELE-EAST 03-07 23:57 → EAST 03-08 18:20
PROVIDERS: ADMIT Internal Medicine; ATTEND Internal Medicine
PROC: 5A1955Z Respiratory Ventilation, Greater than 96 Consecutive Hours (ICD-10-PCS; principal; 2017-02-24)
PROC: 0BH17EZ Insertion of Endotracheal Airway into Trachea, Via Natural or Artificial Opening (ICD-10-PCS; 2017-02-24)
PROC: 5A12012 Performance of Cardiac Output, Single, Manual (ICD-10-PCS; 2017-02-24)
PROC: 5A1D60Z (ICD-10-PCS; 2017-02-28)
PROC: 05HM33Z Insertion of Infusion Device into Right Internal Jugular Vein, Percutaneous Approach (ICD-10-PCS; 2017-02-28)
PROC: B543ZZA Ultrasonography of Right Jugular Veins, Guidance (ICD-10-PCS; 2017-02-28)
PROC: 30233N1 Transfusion of Nonautologous Red Blood Cells into Peripheral Vein, Percutaneous Approach (ICD-10-PCS; 2017-02-28)
DX: A41.9 Sepsis, unspecified organism (principal); J96.00 Acute respiratory failure, unspecified whether with hypoxia or hypercapnia; I50.43 Acute on chronic combined systolic (congestive) and diastolic (congestive) heart failure; J18.9 Pneumonia, unspecified organism; G93.41 Metabolic encephalopathy; I63.511 Cerebral infarction due to unspecified occlusion or stenosis of right middle cerebral artery; N18.6 End stage renal disease; I13.0 Hypertensive heart and chronic kidney disease with heart failure and stage 1 through stage 4 chronic kidney disease, or unspecified chronic kidney disease; E44.0 Moderate protein-calorie malnutrition; E87.0 Hyperosmolality and hypernatremia; G93.1 Anoxic brain damage, not elsewhere classified; N17.9 Acute kidney failure, unspecified; Z99.11 Dependence on respirator [ventilator] status; Z68.41 Body mass index [BMI] 40.0-44.9, adult; Z51.5 Encounter for palliative care; Z66 Do not resuscitate; E11.51 Type 2 diabetes mellitus with diabetic peripheral angiopathy without gangrene; E11.22 Type 2 diabetes mellitus with diabetic chronic kidney disease; E87.6 Hypokalemia; E78.5 Hyperlipidemia, unspecified; D69.6 Thrombocytopenia, unspecified; I25.10 Atherosclerotic heart disease of native coronary artery without angina pectoris; D64.9 Anemia, unspecified; I25.5 Ischemic cardiomyopathy; I46.9 Cardiac arrest, cause unspecified; K75.9 Inflammatory liver disease, unspecified; Z95.1 Presence of aortocoronary bypass graft; Z99.2 Dependence on renal dialysis; Z79.82 Long term (current) use of aspirin; Z82.49 Family history of ischemic heart disease and other diseases of the circulatory system; Z83.3 Family history of diabetes mellitus; Z86.73 Personal history of transient ischemic attack (TIA), and cerebral infarction without residual deficits; Z89.612 Acquired absence of left leg above knee
CPT/HCPCS: 36415; 36600; 51702; 70450; 71010; 74176; 76937; 80048; 80053; 80061; 80307; 81001; 82040; 82805; 82962; 83036; 83605; 83735; 83880; 84100; 84484; 85025; 85379; 86850; 86900; 86901; 86920; 87040; 87070; 87081; 87205; 87493; 90935; 92950; 93005; 93306; 94002; 94003; 94640; 96365; 96366; 96368; 96375; 99291; C9113; J0696; J0885; J1642; J1815; J2543; J3010; J3490; J7060